=== PATIENT | female | born 1985 | race African-American/Black ===

== ENCOUNTER 2017-04-22 12:44 | Emergency (ER) | payer MEDICAID ==
[~2017-04-22] VITALS: Ht 160 cm; Wt 64.0 kg
[2017-04-22 13:15] VITALS: BP 125/86
[2017-04-22] MEDS ORDERED: VISCOUS LIDOCAINE 2% 15 ML UDC PO STA (13:48)
[2017-04-22] MEDS ORDERED: MAGNESIUM/ALUMINUM HYDROXIDE/SIMETHICONE 30ML UDC PO STA (13:48)
== END 2017-04-22 15:30 | disposition home or self-care (01) ==
LOC: ER 15:19
DX: K21.9 Gastro-esophageal reflux disease without esophagitis (principal); F17.200 Nicotine dependence, unspecified, uncomplicated; F12.10 Cannabis abuse, uncomplicated
CPT/HCPCS: 99283